=== PATIENT | female | born 1980 | race Caucasian/White ===

== ENCOUNTER 2016-11-01 05:34 | Day surgery (SDC) | payer OTHER ==
[~2016-11-01] VITALS: Ht 167.6 cm; Wt 115.7 kg
--- NOTE | ~2016-11-01 | S ---
[facility] [place] [address] SURGICAL PATH RPT PROCEDURE Name: ELZA HATHAWAY Room #: DEP [facility] M.R.#: [id number] Admission: 11/01/16 Date of : 82 Discharge: 11/02/16 Report #: [id number] Path Case #: [id number] PATHOLOGY REPORT COLLECTION DATE: 11/01/2016 RECEIVED DATE: 11/01/2016 SUBMITTING PHYS: Dr. Thien Danielle OTHER PHYS: Dr. Vick Ortega SPECIMEN(S) RECEIVED: A.Gallbladder * * * * * * * * * * * * FINAL DIAGNOSIS: Gallbladder, cholecystectomy: - Mild chronic cholecystitis. - Cholesterolosis and cholesterol polyps. PATHOLOGIST: Claudia Felton M.D. REPORT ELECTRONICALLY SIGNED BY: Claudia Felton M.D. DATE/TIME: 11/04/2016 16:04 * * * * * * * * * * * * GROSS PATHOLOGY: Received in formalin labeled "reza Wagner," is a 7.1 x 2.8 x 1.4 cm, previously opened gallbladder with green kumar serosal surfaces. Opening the gallbladder reveals velvety and light green mucosa displaying multiple polypoid excrescences ranging from 0.2-0.4 cm and an average wall thickness of 0.1 cm. Upon careful inspection of the gallbladder and container, no calculi are present. No masses are noted grossly. Levee Superintendent sections from the body and fundus are submitted along with the proximal margin in cassette A1. (KAH; 11/02/2016) CLINICAL HISTORY: Pre-op diagnosis: Acalculous cholecystitis Post-op diagnosis: Cholelithiasis, cholesterolosis INITIAL CPT CODE(S): A; 49444 Professional services performed by [facility] at [facility] [address], [place] [address] [facility] [address] [place] [address] SURGICAL PATH RPT PROCEDURE Name: ELZA HATHAWAY Room #: DEP [facility].#: [id number] Admission: 11/01/16 Date of : 82 Discharge: 11/02/16 Report #: [id number] Path Case #: [id number] Technical services performed by [facility] at [address] [place] [address], [place] [address]. [place] [address] PHONE: [phone] DIRECTOR: Yousuf Simental M.D. * * * END OF REPORT * * *
[~2016-11-01 05:34] MED LIST: FISH OIL 1,001000 M2 PO; LIALDA1.2 GM PO; MULTIVITAMINS1 EAC7 PO; NORCO 5-325 TA1 EACH PO; PROBIOTIC1 EAC2 PO; TRAMADOL 50 MG50 MG PO; YASMIN 28 TABL1 EACH PO
[2016-11-01 08:31] LABS: HEMATOCRIT 40.2 % (37.0-47.0); HEMOGLOBIN 13.3 gm/dL (12.0-15.0); MCH 27.2 pg (26.0-34.0); MCHC 33.1 g/dL (28.0-37.0); RBC 4.9 mil/uL (4.20-5.00); RDW 14.7 % (10.5-14.5); WBC 8.8 thou/uL (4.0-11.0)
[2016-11-01 08:40] LABS: CALCIUM 9.3 mg/dL (8.5-10.1); CREATININE 0.8 mg/dL (0.6-1.0); POTASSIUM 4.1 mmol/L (3.5-5.1)
[2016-11-01 08:46] LABS: ALBUMIN 3.4 g/dL (3.4-5.0); TOTAL BILIRUBIN 0.3 mg/dL (<0.1-1.0); TOTAL PROTEIN 7.8 g/dL (6.4-8.2)
[2016-11-01 12:58] VITALS: BP 149/74
[2016-11-01 13:00] VITALS: BP 149/74
[2016-11-01 15:52] VITALS: BP 150/87
[2016-11-01 16:04] VITALS: BP 150/87
[2016-11-01 19:21] VITALS: BP 128/68
[2016-11-02 04:18] LABS: HEMOGLOBIN 12.1 gm/dL (12.0-15.0); MCH 27.4 pg (26.0-34.0); MCHC 33.5 g/dL (28.0-37.0); MCV 81.7 fL (80.0-100.0); RBC 4.41 mil/uL (4.20-5.00); RDW 14.8 % (10.5-14.5); WBC 17.4 thou/uL (4.0-11.0)
[2016-11-02 04:27] VITALS: BP 120/60
[2016-11-02 07:49] VITALS: BP 133/75
[2016-11-02 07:55] VITALS: BP 133/75
[2016-11-02 13:29] VITALS: BP 133/75
== END 2016-11-02 14:11 | disposition home or self-care (01) ==
LOC: OR 05:34 → TBA 05:34 → OR 08:42 → 4S 12:35 → OR 12:47
PROVIDERS: Surgery
DX: K80.10 Calculus of gallbladder with chronic cholecystitis without obstruction (principal); F32.89 Other specified depressive episodes; F41.8 Other specified anxiety disorders; Z87.891 Personal history of nicotine dependence; Z98.890 Other specified postprocedural states; Z88.8 Allergy status to other drugs, medicaments and biological substances
CPT/HCPCS: 50010; 50101; 50249; 50411; 50555; 50900; 50962; 51975; 52265; 52287; 53307; 53314; 54022; 54118; 55245; 55317; 56462; 56525; 56526; 62110; 62900; 70005